=== PATIENT | male | born 1980 | race American Indian/Alaskan Native ===

== ENCOUNTER 2017-07-14 18:06 | Emergency (ER) | payer MEDICAID, OTHER ==
[2017-07-14 18:32] VITALS: O2SAT 100; BMI 21.2
--- NOTE | 2017-07-14 18:40 | ED PDOC ---
Arrival/HPI - General Chief Complaint: GI Problem Time Seen by Provider: 07/14/17 18:25 Historian: Patient - History of Present Illness Narrative History of Present Illness (Text): 07/14/17 18:40 A 37 year old male presents to the emergency department complaining of bloody stool. Patient reports blood in stool was bright red after bowel movement. Patient states toyin movement was somewhat painful. Notes also experiencing slight LLQ abdominal pain while having the bowel movement. Patient denies any vomiting, diarrhea, dysuria, urinary frequency, or any other complaints at this time. Denies hx of colonoscopy or endoscopy PMD: Dr. Gina Moody 07/14/17 21:54 07/14/17 22:41 Past Medical History - Provider Review Nursing Documentation Reviewed: Yes - Infectious Disease Hx of Infectious Diseases: None - Psychiatric Hx Substance Use: Yes - Anesthesia Hx Anesthesia: No Family/Social History - Physician Review Nursing Documentation Reviewed: Yes Family/Social History: No Known Family HX Smoking Status: Light Smoker < 10 Cigarettes Daily Hx Alcohol Use: Yes Frequency of alcohol use: Few days per week Hx Substance Use: Yes Substance used: marijuana Allergies/Home Meds Allergies/Adverse Reactions: Allergies No Known Allergies Allergy (Verified 07/14/17 18:22) Home Medications: Home Meds Medication Instructions Recorded Confirmed No Known Home Med 07/14/17 07/14/17 Review of Systems - Review of Systems Constitutional: absent: Fevers, Night Sweats Eyes: absent: Vision Changes ENT: absent: Sore Throat Respiratory: absent: SOB, Cough Cardiovascular: absent: Chest Pain, Palpitations, Edema, Calf Pain Gastrointestinal: Abdominal Pain ( LLQ), Stool Changes (bright red bloody stool) . absent: Diarrhea, Vomiting Genitourinary Male: absent: Dysuria, Frequency Musculoskeletal: absent: Back Pain, Myalgias Skin: absent: Rash Neurological: absent: Headache Psychiatric: absent: Anxiety Physical Exam Vital Signs Reviewed: Yes Vital Signs Temp Pulse Resp BP Pulse Ox 07/14/17 22:20 98.7 F 72 16 127/87 100 07/14/17 18:29 98.2 F 75 18 142/95 H 100 Temperature: Afebrile Blood Pressure: Normal Pulse: Regular Respiratory Rate: Normal Appearance: Positive for: Well-Appearing, Non-Toxic, Comfortable Pain Distress: None Mental Status: Positive for: Alert and Oriented X 3 - Systems Exam Head: Present: Atraumatic, Normocephalic Pupils: Present: PERRL Extroacular Muscles: Present: EOMI Conjunctiva: Present: Normal Mouth: Present: Moist Mucous Membranes Neck: Present: Normal Range of Motion Respiratory/Chest: Present: Clear to Auscultation, Good Air Exchange. No: Respiratory Distress, Accessory Muscle Use Cardiovascular: Present: Regular Rate and Rhythm, Normal S1, S2. No: Murmurs Abdomen: No: Tenderness, Distention Upper Extremity: Present: Normal Inspection. No: Cyanosis, Edema Lower Extremity: Present: Normal Inspection. No: Edema Neurological: Present: GCS=15, CN II-XII Intact, Speech Normal Skin: Present: Warm, Dry, Normal Color. No: Rashes Psychiatric: Present: Alert, Oriented x 3, Normal Insight, Normal Concentration Medical Decision Making ED Course and Treatment: 07/14/17 18:46 Impression: 37 year old male with bright red blood per rectum with bowel movement. Likely ruptured diverticulum vs hemorrhoid. Plan: -- Abd/Pelvis CT -- Labs -- Tylenol -- Reassess and disposition Progress Notes: 07/14/17 21:55 Vitals WNL. Hgb:14.9, Pt/ptt and platelets WNL. 07/14/17 22:11 CT shows "No acute solid visceral abnormality; limited evaluation of the bowel due to paucity of fat and lack of oral contrast, no bowel obstruction" 07/14/17 22:46 Patient reports that he feels well. On reevaluation, he has soft NT/ND abdomen and is tolerating po. He has had no additional episodes of bleeding in ED. He reports that he understands he needs to follow-up with GI for colonoscopy. - Lab Interpretations Lab Results: 07/14/17 19:00 07/14/17 19:00 Lab Results 07/14/17 20:47: Blood Type Confirm A POSITIVE 07/14/17 19:20: Blood Type A POSITIVE, Antibody Screen Negative, BBK History Checked No verified bt 07/14/17 19:00: Sodium 142, Potassium 3.7, Chloride 102, Carbon Dioxide 29, Anion Gap 14, BUN 14, Creatinine 0.9, Est GFR ( Amer) > 60, Est GFR (Non- Af Amer) > 60, Random Glucose 91, Calcium 9.2, Total Bilirubin 0.1 L, AST 47, ALT 33, Alkaline Phosphatase 48, Total Protein 7.7, Albumin 4.4, Globulin 3.3, Albumin/Globulin Ratio 1.3 07/14/17 19:00: PT 12.5, INR 1.09 H, APTT 30.3 07/14/17 19:00: WBC 4.4 L, RBC 4.61, Hgb 14.9, Hct 42.0, MCV 91.1, MCH 32.3, MCHC 35.5, RDW 13.4, Plt Count 200, MPV 9.5, Gran % 42.0 L, Lymph % (Auto) 48.0 H, Yell % (Auto) 7.7 H, Eos % (Auto) 1.8, Baso % (Auto) 0.5, Gran # 1.85, Lymph # (Auto) 2.1, Yell # (Auto) 0.3, Eos # (Auto) 0.1, Baso # (Auto) 0.02 - RAD Interpretation Radiology Orders: 07/14/17 18:38 ABD & PELVIS IV CONTRAST ONLY [CT] Stat - Medication Orders Current Medication Orders: Discontinued Medications Acetaminophen (Tylenol 325mg Tab) 650 mg PO STAT STA Stop: 07/14/17 18:40 Last Admin: 07/14/17 19:29 Dose: 650 mg - Scribe Statement The provider has reviewed the documentation as recorded by the Addie Mccullough Provider Scribe Attestation: All medical record entries made by the Javieribfroilan were at my direction and personally dictated by me. I have reviewed the chart and agree that the record accurately reflects my personal performance of the history, physical exam, medical decision making, and the department course for this patient. I have also personally directed, reviewed, and agree with the discharge instructions and disposition. Disposition/Present on Arrival - Present on Arrival Any Indicators Present on Arrival: No History of DVT/PE: No History of Uncontrolled Diabetes: No Urinary Catheter: No History of Decub. Ulcer: No History Surgical Site Infection Following: None - Disposition Have Diagnosis and Disposition been Completed?: Yes Diagnosis: Bright red blood per rectum Disposition: HOME/ ROUTINE Disposition Time: 22:12 Patient Plan: Discharge Condition: GOOD Additional Instructions: Follow-up with GI within 1 week. Follow-up with PMD within 2 days. Return to ED if condition worsens Referrals: Gina Moody MD [Primary Care Provider] - Follow up with primary Mynor Dee MD [Staff Provider] - Follow up with primary Forms: [employer] (Indonesian)
[2017-07-14 19:34] LABS: BASO # 0.02 K/mm3 (0.0-2.0); BASO % 0.5 % (0.0-3.0); EOS # 0.1 (0.0-0.7); EOS % 1.8 % (1.5-5.0); GRAN # 1.85 (1.4-6.5); HEMOGLOBIN 14.9 g/dL (14.0-18.0); LYMPH # 2.1 (1.2-3.4); MEAN CELL VOLUME 91.1 fl (80.0-105.0); MEAN CORPUSCULAR HEMOGLOBIN 32.3 pg (25.0-35.0); MEAN CORPUSCULAR HGB CONC 35.5 g/dl (31.0-37.0); MEAN PLATELET VOLUME 9.5 fl (7.0-11.0); MONO # 0.3 (0.1-0.6); MONO % 7.7 % (1.0-6.0); RBC 4.61 10^6/uL (3.5-6.1); RED CELL DISTRIBUTION WIDTH 13.4 % (11.5-14.5); WHITE BLOOD COUNT 4.4 10^3/ul (4.5-11.0)
[2017-07-14 19:50] LABS: ALB/GLOB RATIO 1.3 (1.1-1.8); ALBUMIN 4.4 g/dL (3.0-4.8); ALT/SGPT 33 U/L (7-56); AST/SGOT 47 U/L (17-59); BLOOD UREA NITROGEN 14 mg/dL (7-21); CALCIUM 9.2 mg/dL (8.4-10.5); GFR AFRICAN-AMERICAN > 60; GFR NON-AFRICAN AMERICAN > 60
[2017-07-14 20:03] LABS: INR 1.09 (0.93-1.08); PARTIAL THROMBOPLASTIN TIME 30.3 Seconds (25.1-36.5); PROTHROMBIN TIME 12.5 SECONDS (9.4-12.5)
[2017-07-14] MEDS ORDERED: Iohexol 350 MG/100 ML VIAL ONE (20:10)
--- NOTE | 2017-07-14 22:09 | CT ---
EXAM: CT Abdomen and Pelvis With Intravenous Contrast EXAM DATE/TIME: 07/14/2017 6:38 PM CLINICAL HISTORY: 37 years old, male; Pain; Abdominal pain; Localized; Left lower quadrant (llq); Additional info: Llq pain, bright red blood per rectum TECHNIQUE: Axial computed tomography images of the abdomen and pelvis with intravenous contrast. All CT scans at this facility use one or more dose reduction techniques, viz.: automated exposure control; ma/kV adjustment per patient size (including targeted exams where dose is matched to indication; i.e. head); or iterative reconstruction technique. Coronal and sagittal reformatted images were created and reviewed. CONTRAST: 93 mL of OMNI 350 administered intravenously. COMPARISON: There are no prior studies for comparison. FINDINGS: Lower thorax: Heart size is normal. Lung bases are clear ABDOMEN: Liver: unremarkable Gallbladder and bile ducts: unremarkable Pancreas: unremarkable Spleen: unremarkable Adrenals: unremarkable Kidneys and ureters: unremarkable Stomach and bowel: Paucity of body fat and lack of oral contrast limits evaluation of the intestinal tract. Stomach is distended with ingested material. Rotation is normal. There is fluid and air throughout the small bowel. Ileocecal region is not optimally evaluated. Colon is not optimally evaluated. Colon is incompletely distended which limits evaluation. PELVIS: Appendix: See stomach and bowel Bladder: Bladder is partially distended. Reproductive: Seminal vesicles and prostate are not optimally evaluated. ABDOMEN and PELVIS: Intraperitoneal space:There is no free air or free fluid. Bones/joints: There are no acute osseous abnormalities. Soft tissues: See below. Vasculature: Aorta and inferior vena cava are unremarkable. There are collateral vessels in the left abdominal wall. Lymph nodes: unremarkable IMPRESSION: No acute solid visceral abnormality; limited evaluation of the bowel due to paucity of fat and lack of oral contrast, no bowel obstruction Additional nonemergent findings as described above.
[2017-07-14 22:21] VITALS: BP 127/87; PULSE 72; RESP 16; TEMP 98.7
== END 2017-07-14 22:20 | disposition home or self-care (01) ==
LOC: ED 18:06
DX: K62.5 Hemorrhage of anus and rectum (principal)
CPT/HCPCS: 74177; 80053; 85025; 85610; 85730; 86850; 86900; 99283; Q9967

== ENCOUNTER 2017-08-20 23:58 | Emergency (ER) | payer OTHER ==
[2017-08-21 00:01] VITALS: BMI 18.9
[2017-08-21 00:04] VITALS: RESP 18; TEMP 98.3
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
[2017-08-21 05:16] VITALS: BP 124/76; PULSE 76; O2SAT 99
== END 2017-08-21 02:28 | disposition home or self-care (01) ==
LOC: ED 23:58
DX: R41.82 Altered mental status, unspecified (principal); F17.210 Nicotine dependence, cigarettes, uncomplicated

== ENCOUNTER 2018-05-21 01:48 | Emergency (ER) | payer SELFPAY ==
[2018-05-21 01:56] VITALS: BMI 21.2
[2018-05-21 01:59] VITALS: RESP 18; TEMP 99.3
--- NOTE | 2018-05-21 02:57 | ED PDOC ---
Arrival/HPI - General Chief Complaint: Substance Abuse Time Seen by Provider: 05/21/18 01:59 Historian: Patient, EMS - History of Present Illness Narrative History of Present Illness (Text): 05/21/18 02:53 38 year old male, with no significant past medical history, presents to the emergency department by EMS for evaluation for alcohol intoxication this evening. Patient with history of alcohol abuse this evening and admits to have been drinking alcohol and smoking marijuana. He also admits he accidentally cut his finger on a piece of glass. He admits his last tetanus shot was 3 years ago. Patient denies any somatic complaints. Patient denies any fever, chills, chest pain, shortness of breath, nausea, vomiting, diarrhea, urinary symptoms, back pain, neck pain, headache, dizziness, SI/HI, or any other complaints Time/Duration: Other (this evening) Symptom Onset: Gradual Activities at Onset: Light Past Medical History - Provider Review Nursing Documentation Reviewed: Yes - Infectious Disease Hx of Infectious Diseases: None - Psychiatric Hx Substance Use: Yes - Anesthesia Hx Anesthesia: No Family/Social History - Physician Review Nursing Documentation Reviewed: Yes Family/Social History: No Known Family HX Smoking Status: Light Smoker < 10 Cigarettes Daily Hx Alcohol Use: Yes Hx Substance Use: Yes Substance used: marijuana/PCP Allergies/Home Meds Allergies/Adverse Reactions: Allergies No Known Allergies Allergy (Verified 08/21/17 00:01) Home Medications: Home Meds Medication Instructions Recorded Confirmed No Known Home Med 07/14/17 05/21/18 Review of Systems - Physician Review All systems were reviewed & negative as marked: Yes - Review of Systems Constitutional: absent: Fevers, Other (chills) Respiratory: absent: SOB Cardiovascular: absent: Chest Pain Gastrointestinal: absent: Diarrhea, Nausea, Vomiting Genitourinary Male: absent: Dysuria, Frequency, Hematuria Musculoskeletal: absent: Back Pain, Neck Pain Neurological: absent: Headache, Dizziness Psychiatric: Other (alcohol intoxication ). absent: Suicidal Ideation (/HI) Physical Exam Vital Signs Reviewed: Yes Vital Signs Temp Pulse Resp BP Pulse Ox 05/21/18 01:55 99.3 F 96 H 18 126/77 96 Temperature: Afebrile Blood Pressure: Normal Pulse: Regular Respiratory Rate: Normal Appearance: Positive for: Well-Appearing, Non-Toxic, Comfortable Pain Distress: None Mental Status: Positive for: Alert and Oriented X 3 (minimally inebriated ) - Systems Exam Head: Present: Atraumatic, Normocephalic Pupils: Present: PERRL Extroacular Muscles: Present: EOMI Conjunctiva: Present: Normal Mouth: Present: Moist Mucous Membranes Neck: Present: Normal Range of Motion Respiratory/Chest: Present: Clear to Auscultation, Good Air Exchange. No: Respiratory Distress, Accessory Muscle Use Cardiovascular: Present: Regular Rate and Rhythm, Normal S1, S2. No: Murmurs Abdomen: No: Tenderness, Distention, Peritoneal Signs Back: Present: Normal Inspection Upper Extremity: Present: Neurovascularly Intact, Other (superfical less than 0.5cm skin avulsion to the dorsm of the right thumb. ). No: Cyanosis, Edema, Swelling Lower Extremity: Present: Normal Inspection. No: Edema Neurological: Present: GCS=15, Speech Normal, Motor Func Grossly Intact, Normal Sensory Function Skin: Present: Warm, Dry, Normal Color. No: Rashes Psychiatric: Present: Alert, Oriented x 3, Normal Insight, Normal Concentration, Intoxicated (minimally inebriated ) Medical Decision Making ED Course and Treatment: 05/21/18 03:01 Impression: 38 year old male presents for evaluation of alcohol intoxication and marijuana use tonight. Plan: -- wound repair/closing -- Sobriety -- Reassess and disposition Prior Visits: Notes and results from previous visits were reviewed. Progress Notes: Cleansed right thumb with saline, steri stripped, used bacitracin, and dressed with sterile dressing. 05/21/18 05:50 Patient is awake and oriented x3. Patient is ambulating with a steady gait. Patient denies any complaint at present time. Patient is in no acute distress and is stable for discharge. - Scribe Statement The provider has reviewed the documentation as recorded by the Addie Nazario Provider Scribe Attestation: All medical record entries made by the Addie were at my direction and personally dictated by me. I have reviewed the chart and agree that the record accurately reflects my personal performance of the history, physical exam, medical decision making, and the department course for this patient. I have also personally directed, reviewed, and agree with the discharge instructions and disposition. Disposition/Present on Arrival - Present on Arrival Any Indicators Present on Arrival: No History of DVT/PE: No History of Uncontrolled Diabetes: No Urinary Catheter: No History of Decub. Ulcer: No History Surgical Site Infection Following: None - Disposition Have Diagnosis and Disposition been Completed?: Yes Diagnosis: Alcohol abuse, Avulsion of skin of right thumb Disposition: HOME/ ROUTINE Disposition Time: 05:48 Patient Plan: Discharge Patient Problems: Current Active Problems Problem Status Onset Alcohol abuse Acute Avulsion of skin of right thumb Acute Condition: STABLE Discharge Instructions (ExitCare): Alcohol Abuse and Alcoholism (DC) Additional Instructions: Dont drink alcohol/keep skin wound clean /apply clean bandage daily Referrals: FAMILY PROVIDER,NO [Primary Care Provider] - Follow up with primary Alcoholics Anonymous [Outside] - Follow up with primary Forms: [employer] (Amharic)
[2018-05-21 06:29] VITALS: BP 124/75; PULSE 85; O2SAT 100
== END 2018-05-21 06:00 | disposition home or self-care (01) ==
LOC: ED 01:48
DX: F10.129 Alcohol abuse with intoxication, unspecified (principal); S61.001A Unspecified open wound of right thumb without damage to nail, initial encounter; W25.XXXA Contact with sharp glass, initial encounter; F17.210 Nicotine dependence, cigarettes, uncomplicated

== ENCOUNTER 2018-06-02 13:22 | Emergency (ER) | payer MEDICAID, OTHER ==
[2018-06-02 14:02] VITALS: RESP 18; TEMP 98.3; BMI 20.7
[2018-06-02] MEDS ORDERED: TDAP Vaccine 0.5 mL Syr IM ONE (14:39)
--- NOTE | 2018-06-02 14:46 | ED PDOC ---
Arrival/HPI - General Chief Complaint: Finger,Hand,&Wrist Time Seen by Provider: 06/02/18 13:29 Historian: Patient - History of Present Illness Narrative History of Present Illness (Text): 06/02/18 14:40 38-year-old male presents today with a 2-week history of right hand pain. Patient states that he was closing a window and it got stuck and he jammed his hand through the window. He is complaining of pain over the dorsal aspect of the thumb as well as pain to the fourth finger along the dorsal aspect. Patient denies numbness weakness or tingling. Patient states he feels a tightness when he flexes the thumb. Patient is not exactly sure when his last tetanus shot was. Patient states he noticed a small amount of discharge coming from the abrasion/wound on the thumb. Patient denies fevers or chills. No other complai nts Past Medical History - Provider Review Nursing Documentation Reviewed: Yes - Travel History Have you recently traveled outside [place] w/in the past 3 mons?: No - Infectious Disease Hx of Infectious Diseases: None - Psychiatric Hx Substance Use: Yes - Surgical History Other/Comment: cyst removal from L chest @ 16 years old - Anesthesia Hx Anesthesia: Yes Hx Anesthesia Reactions: No Hx Malignant Hyperthermia: No Family/Social History - Physician Review Nursing Documentation Reviewed: Yes Family/Social History: Unknown Family HX Smoking Status: Light Smoker < 10 Cigarettes Daily Hx Alcohol Use: Yes Hx Substance Use: Yes Substance used: marijuana/PCP Allergies/Home Meds Allergies/Adverse Reactions: Allergies No Known Allergies Allergy (Verified 08/21/17 00:01) Review of Systems - Review of Systems Constitutional: absent: Fatigue, Fevers Respiratory: absent: SOB, Cough Cardiovascular: absent: Chest Pain, Palpitations Gastrointestinal: absent: Abdominal Pain, Nausea, Vomiting Musculoskeletal: Arthralgias Skin: Laceration Neurological: absent: Headache, Dizziness Psychiatric: absent: Anxiety, Depression Physical Exam Vital Signs Reviewed: Yes Vital Signs Temp Pulse Resp BP Pulse Ox 06/02/18 13:53 98.3 F 92 H 18 125/78 96 Temperature: Afebrile Blood Pressure: Normal Pulse: Regular Respiratory Rate: Normal Appearance: Positive for: Well-Appearing, Non-Toxic, Comfortable Pain Distress: None Mental Status: Positive for: Alert and Oriented X 3 - Systems Exam Head: Present: Atraumatic Mouth: Present: Moist Mucous Membranes Neck: Present: Normal Range of Motion Respiratory/Chest: Present: Clear to Auscultation Cardiovascular: Present: Regular Rate and Rhythm Upper Extremity: Present: Normal ROM, NORMAL PULSES, Tenderness (right hand; + minimal tenderness over 1st IP joint; there is a small 2cm wound without surrounding erthema, edema, or ecchymosis; Full rom of finger. there is a superficial healing abrasion on the right 4th finger. full rom. sensation and distal pulses in tact. cap refill <2. ), Neurovascularly Intact, Capillary Refill < 2s. No: Swelling, Erythema, Deformity Neurological: Present: GCS=15, Speech Normal Skin: Present: Warm, Dry Psychiatric: Present: Alert, Oriented x 3 Medical Decision Making ED Course and Treatment: 06/02/18 15:11 Patient nontoxic well-appearing in no distress with stable vital signs X-rays of the right hand; FINDINGS: BONES: No acute displaced fracture. JOINTS: No dislocation. SOFT TISSUES: Unremarkable. No evidence of radiopaque foreign body. OTHER FINDINGS: None. IMPRESSION: No acute displaced fracture, dislocation, or significant joint effusion identified. If symptoms persist, or if there is continued clinical concern, x-ray follow-up in 7-10 days should be considered. motrin po keflex I discussed all results with patient advised to followup with the orthopedist for the next 2 days. Return if symptoms worsen persist or new symptoms develop pt advised to take medications as prescribed, keep the wounds clean and dry and apply bacitracin twice daily Patient verbalizes understanding of discharge instructions and need for immediate followup. All aspects of this case were discussed the attending of record. Impression: hand pain, abrasions, hand Motrin every 6 hours as needed for pain Keflex; 4 times daily x 5 days. Keep wounds clean and dry. apply bacitracin twice daily Followup with the orthopedist/hand specialist within the next 2 days Followup with primary care physician within the next 2 days Return if any other concerning symptoms develop - RAD Interpretation Radiology Orders: 06/02/18 14:24 HAND RIGHT 3 VIEWS [RAD] Stat - Medication Orders Current Medication Orders: Ibuprofen (Motrin Tab) 600 mg PO STAT STA Stop: 06/02/18 14:40 Tetanus/Reduced Diphtheria/Acell Pertussis (Boostrix Vaccine Inj) 0.5 ml IM .ONCE ONE Stop: 06/02/18 14:40 Disposition/Present on Arrival - Present on Arrival Any Indicators Present on Arrival: No History of DVT/PE: No History of Uncontrolled Diabetes: No Urinary Catheter: No History of Decub. Ulcer: No History Surgical Site Infection Following: None - Disposition Have Diagnosis and Disposition been Completed?: Yes Diagnosis: Hand pain, Abrasion, hand Disposition: HOME/ ROUTINE Disposition Time: 15:00 Patient Plan: Discharge Patient Problems: Current Active Problems Problem Status Onset Abrasion, hand Acute Hand pain Acute Condition: GOOD Discharge Instructions (ExitCare): Skin Abrasions (DC), Hand Pain (DC) Additional Instructions: Motrin every 6 hours as needed for pain Keflex; 4 times daily x 5 days. Keep wounds clean and dry. apply bacitracin twice daily Followup with the orthopedist/hand specialist within the next 2 days Followup with primary care physician within the next 2 days Return if any other concerning symptoms develop Prescriptions: Cephalexin [Keflex] 500 mg PO QID #28 capsule Ibuprofen [Motrin] 600 mg PO Q6H PRN #20 tab PRN Reason: pain/fever reduction Referrals: Emerita Foster MD [Medical Doctor] - Follow up with primary Jennifer Starks MD [Staff Provider] - Follow up with primary Ventura Squires MD [Staff Provider] - Follow up with primary [facility] [Outside] - Follow up with primary [facility] [Outside] - Follow up with primary [facility] [place] [Outside] - Follow up with primary Forms: [facility] ([facility]), WORK NOTE
--- NOTE | 2018-06-02 14:57 | RAD ---
PROCEDURE: Right Hand Radiographs. HISTORY: right thumb and 4th finger pain COMPARISON: None available. FINDINGS: BONES: No acute displaced fracture. JOINTS: No dislocation. SOFT TISSUES: Unremarkable. No evidence of radiopaque foreign body. OTHER FINDINGS: None. IMPRESSION: No acute displaced fracture, dislocation, or significant joint effusion identified. If symptoms persist, or if there is continued clinical concern, x-ray follow-up in 7-10 days should be considered.
[2018-06-02 15:37] VITALS: BP 124/71; PULSE 90; O2SAT 100
[2018-06-02] MEDS ORDERED: Bacitracin 500 Units/gm Oint Foilpak UD TOP ONE (15:41)
== END 2018-06-02 15:50 | disposition home or self-care (01) ==
LOC: ED 13:22
DX: M79.641 Pain in right hand (principal); S60.414A Abrasion of right ring finger, initial encounter; W23.0XXA Caught, crushed, jammed, or pinched between moving objects, initial encounter; Z23 Encounter for immunization; F17.210 Nicotine dependence, cigarettes, uncomplicated